=== PATIENT | female | born 1965 | race Caucasian/White ===

== ENCOUNTER 2021-09-18 06:44 | Day surgery (SDC) | payer BC ==
[~2021-09-18] VITALS: Ht 154.9 cm; Wt 63.4 kg
[~2021-09-18 06:44] MED LIST: ALBU90OI INH; BYETTA; DEXL60CA3 PO; DROSPIRENONE; ETHINYL ESTRADIOL; FAMO10; GLIM4; IBUHYD PO; LORA1 PO; METF500; METFORMIN HCL500 MG PO; PANT40 PO; RANI150 PO; ROSI4; SCOPTP TOP; Tri-Sprintec1 EACH PO
== END 2021-09-18 09:03 | disposition home or self-care (01) ==
LOC: ORSCSDS 06:44
PROVIDERS: Internal Medicine Gastroenterology
PROC: 0DJD8ZZ Inspection of Lower Intestinal Tract, Via Natural or Artificial Opening Endoscopic (ICD-10-PCS; principal; 2021-09-18 08:00)
DX: Z12.11 Encounter for screening for malignant neoplasm of colon (principal); Z80.0 Family history of malignant neoplasm of digestive organs; Z83.71 Family history of colonic polyps; E11.9 Type 2 diabetes mellitus without complications; K21.9 Gastro-esophageal reflux disease without esophagitis; J45.909 Unspecified asthma, uncomplicated; Z79.899 Other long term (current) drug therapy
CPT/HCPCS: 82947; J2250; J2704; J7120

== ENCOUNTER 2021-11-20 07:33 | Day surgery (SDC) | payer BC ==
[~2021-11-20] VITALS: Ht 154.9 cm; Wt 63.7 kg
[2021-11-20] MEDS ORDERED: CONEST1.25 (07:58)
[2021-11-20] MEDS ORDERED: Provera2.5 MG (07:58)
[2021-11-20] MEDS ORDERED: OZEMPIC1 MG/0.72 (07:58)
== END 2021-11-20 09:45 | disposition home or self-care (01) ==
LOC: ORSCSDS 07:33
PROVIDERS: Internal Medicine Gastroenterology
PROC: 0DBL8ZX Excision of Transverse Colon, Via Natural or Artificial Opening Endoscopic, Diagnostic (ICD-10-PCS; principal; 2021-11-20 08:45)
DX: Z80.0 Family history of malignant neoplasm of digestive organs (principal); Z83.71 Family history of colonic polyps; D12.3 Benign neoplasm of transverse colon; Z98.84 Bariatric surgery status; E11.9 Type 2 diabetes mellitus without complications; J45.909 Unspecified asthma, uncomplicated; Z87.891 Personal history of nicotine dependence; Z79.899 Other long term (current) drug therapy
CPT/HCPCS: 82947; 88305; J2250; J2704; J7120

== ENCOUNTER 2024-07-06 16:44 | Emergency (ER) | payer BC ==
[~2024-07-06] VITALS: Ht 154.9 cm; Wt 65.8 kg
[~2024-07-06 16:44] MED LIST changes: +CONEST1.25; +OZEMPIC1 MG/0.72; +Provera2.5 MG
[2024-07-06 16:53] VITALS: BP 132/80
[2024-07-06] MEDS ORDERED: Robaxin750 MG PO (18:11)
== END 2024-07-06 18:28 | disposition home or self-care (01) ==
LOC: ER 16:44
DX: M54.16 Radiculopathy, lumbar region (principal); Z88.6 Allergy status to analgesic agent; Z88.8 Allergy status to other drugs, medicaments and biological substances; Z88.5 Allergy status to narcotic agent; Z79.899 Other long term (current) drug therapy; E11.9 Type 2 diabetes mellitus without complications; Z87.891 Personal history of nicotine dependence
CPT/HCPCS: 72100; 99283-25

== ENCOUNTER → 2024-09-13 | Outpatient (CLI) | payer BC ==
[~2024-09-13] MED LIST changes: +Robaxin750 MG PO
== END ==
LOC: LAB SHORT 17:02 → LAB 17:02
DX: K27.9 Peptic ulcer, site unspecified, unspecified as acute or chronic, without hemorrhage or perforation (principal)
CPT/HCPCS: 87338

== ENCOUNTER 2025-07-24 09:47 | Day surgery (SDC) | payer BC ==
[~2025-07-24] VITALS: Ht 154.9 cm; Wt 65.2 kg
[2025-07-24] MEDS ORDERED: MOUNJARO5 MG/0.5 M (10:19)
[2025-07-24] MEDS ORDERED: ESTRADIOL1 MG (10:20)
[2025-07-24] MEDS ORDERED: EZET10 (10:20)
[2025-07-24] MEDS ORDERED: PROG100 (10:21)
[2025-07-24] MEDS ORDERED: Crestor40 MG (10:21)
[2025-07-24] MEDS ORDERED: EUTHYROX50 MCG (10:21)
[2025-07-24 12:53] VITALS: BP 107/67
== END 2025-07-24 12:51 | disposition home or self-care (01) ==
LOC: ORSCSDS 09:47
PROVIDERS: Internal Medicine Gastroenterology
PROC: 0DJ08ZZ Inspection of Upper Intestinal Tract, Via Natural or Artificial Opening Endoscopic (ICD-10-PCS; principal; 2025-07-24 11:30)
DX: R10.13 Epigastric pain (principal); Z80.0 Family history of malignant neoplasm of digestive organs; Z98.84 Bariatric surgery status; I25.10 Atherosclerotic heart disease of native coronary artery without angina pectoris; Z79.899 Other long term (current) drug therapy
CPT/HCPCS: 82947; J2704